=== PATIENT | female | born 1995 | race Caucasian/White ===

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

== ENCOUNTER 2017-01-03 13:38 | Outpatient (CLI) | payer OTHER | END 2017-01-03 13:39 | disposition home or self-care (01) | DX: R59.0 Localized enlarged lymph nodes (principal) ==

== ENCOUNTER 2017-03-17 13:37 | Outpatient (CLI) | payer OTHER ==
[2017-03-17 20:13] LABS: BASOPHILS % (AUTO) 0.5 %; EOSINOPHILS # (AUTO) 0.6 10^3/uL (0.0-0.7); HCT - HEMATOCRIT 45.2 % (37.0-47.0); HGB - HEMOGLOBIN 15.1 g/dL (12.0-16.0); LYMPHOCYTES # (AUTO) 1.8 10^3/uL (1.5-3.5); LYMPHOCYTES % (AUTO) 25.8 %; MEAN CORPUSCULAR HEMOGLOBIN 29.8 pg (27.0-31.0); MEAN CORPUSCULAR HGB CONC 33.5 g/dL (32.0-36.0); MEAN CORPUSCULAR VOLUME 89.1 fL (81.0-99.0); MEAN PLATELET VOLUME 9.5 fL (7.9-10.8); MONOCYTES # (AUTO) 0.6 10^3/uL (0.0-1.0); MONOCYTES % (AUTO) 8.2 %; NEUTROPHILS # (AUTO) 3.9 10^3/uL (1.5-6.6); NEUTROPHILS % (AUTO) 56.5 %; NUCLEATED RED BLOOD CELLS AUTO 0.1 /100WBC; RED BLOOD COUNT 5.07 10^6/uL (4.20-5.40); RED CELL DISTRIBUTION WIDTH 13.4 % (12.0-15.0); UNCORRECTED WHITE BLOOD COUNT 6.9 x10^3/uL; WHITE BLOOD COUNT 6.9 x10^3/uL (4.8-10.8)
[2017-03-17 20:18] LABS: ALBUMIN/GLOBULIN RATIO 1.6 (1.0-2.2); BILIRUBIN,TOTAL 0.7 mg/dL (0.2-1.0); CALCIUM 9.5 mg/dL (8.5-10.3); CREATININE 0.7 mg/dL (0.4-1.0); POTASSIUM 4.1 mmol/L (3.5-5.0); TOTAL PROTEIN 7.6 g/dL (6.7-8.2)
== END 2017-03-17 13:38 | disposition home or self-care (01) ==
LOC: LAB.WCP 13:37
PROVIDERS: ATTEND Family Medicine
DX: R10.9 Unspecified abdominal pain (principal); R19.7 Diarrhea, unspecified
CPT/HCPCS: 36415; 80053; 82150; 83690; 85025

== ENCOUNTER 2017-03-18 13:39 | Outpatient (CLI) | payer OTHER | END 2017-03-18 13:40 | disposition home or self-care (01) | LOC: LAB.R 13:39 | PROVIDERS: ATTEND Family Medicine | DX: R10.9 Unspecified abdominal pain (principal); R19.7 Diarrhea, unspecified | CPT/HCPCS: 83630; 87045; 87046; 87077; 87177; 87209; 87493 ==

== ENCOUNTER 2017-03-22 15:29 | Outpatient (CLI) | payer OTHER ==
--- NOTE | 2017-03-23 10:39 | Ultrasound Report ---
PELVIC ULTRASOUND NON-OB: 03/22/2017 CLINICAL HISTORY: This is a 21-year-old female in for transabdominal pelvic ultrasound. Only transa bdominal ultrasound was ordered by patient's physician. TECHNIQUE: Transabdominal pelvic ultrasound performed for global evaluation. Real-time scanning perf ormed and static images obtained. FINDINGS: Uterus measures 7.8 x 2.9 x 5 cm for a volume of 59.2 mL. The endometrial echo complex dixon s a normal AP diameter of 5.6 mm. Uterus is normal in size and parenchymal pattern. Left ovary measures 3 x 2.0 x 1.7 cm for a volume of 5.3 mL. Right ovary measures 5.1 x 3.8 x 4.1 cm for a volume of 41.6 mL. Right ovary demonstrates a benign-a ppearing cyst measuring 3.4 x 3.1 x 3.3 cm. This cyst does have some small internal echoes. This pr obably represents a benign cyst, possibly with some hemorrhage. Recommend a repeat ultrasound of the left ovary in 8-12 weeks to further confirm this benign origin. If this cyst has not decreased in s ize or disappeared over this time interval, then suggest if possible a transvaginal ultrasound be inc luded in the examination to better evaluate this lesion. IMPRESSION: 1. NORMAL UTERUS AND LEFT OVARY. 2. A 3.4 X 3.1 X 3.3 CM RIGHT OVARIAN CYST. THIS CYST CONTAINS A SMALL AMOUNT OF DEBRIS WITHIN IT. IT PROBABLY REPRESENTS A BENIGN MINIMALLY HEMORRHAGIC OVARIAN CYST. RECOMMEND A REPEAT PELVIC ULTRA SOUND IN 8-12 WEEKS FOR FURTHER EVALUATION. IF THIS CYST IS UNCHANGED ON THE REPEAT ULTRASOUND, THEN SUGGEST COMPLEMENTING THE EXAM IF POSSIBLE WITH A TRANSVAGINAL ULTRASOUND. JOB #: [id number] EXT JOB #:[id number]
== END 2017-03-22 15:30 | disposition home or self-care (01) ==
LOC: DI 15:29
PROVIDERS: ATTEND Family Medicine
DX: N83.201 Unspecified ovarian cyst, right side (principal)
CPT/HCPCS: 76856

== ENCOUNTER 2017-03-25 09:24 | Outpatient (CLI) | payer OTHER ==
--- NOTE | 2017-03-25 15:24 | Ultrasound Report ---
COMPLETE ABDOMINAL ULTRASOUND: 03/25/2017 CLINICAL INDICATION: Abdominal pain. TECHNIQUE: Real-time scanning was performed with community engagement representative static images obtained. FINDINGS: The liver measures 15.3 cm. Hepatic echotexture is normal. No intrahepatic biliary dilatat ion or focal parenchymal lesion is present. The common bile duct measures 2 mm. The gallbladder is no rmal, as is the visualized pancreas. The right kidney measures 10.2 cm, and the left kidney measures 11.3 cm. Both kidneys appear unremarkable. The spleen measures 10.5 cm, and demonstrates normal echot exture. The abdominal aorta is normal in caliber. The inferior vena cava is unremarkable. No free flu id is present. IMPRESSION: NORMAL ABDOMINAL ULTRASOUND. JOB #: [id number] EXT JOB #:[id number]
== END 2017-03-25 09:25 | disposition home or self-care (01) ==
LOC: DI 09:24
PROVIDERS: ATTEND Family Medicine
DX: R10.9 Unspecified abdominal pain (principal)
CPT/HCPCS: 76700

== ENCOUNTER 2017-06-15 08:44 | Outpatient (CLI) | payer OTHER ==
--- NOTE | 2017-06-15 14:52 | Ultrasound Report ---
PELVIC ULTRASOUND: 06/15/2017 CLINICAL INDICATION: Followup right ovarian cyst. COMPARISON: 03/22/2017. TECHNIQUE: Transabdominal pelvic ultrasound performed for global evaluation. Transvaginal pelvic ultr asound performed for detailed evaluation. Real-time scanning performed and static images obtained. FINDINGS: The uterus is anteverted, measuring 7.8 x 4.8 x 3.5 cm. The endometrial echo complex measu res 13 mm. There is an 1.0 x 0.9 x 0.5 cm hypoechoic nodule in the fundal endometrium, suspicious for a small polyp. No focal myometrial lesion is seen. The right ovary measures 3.5 x 2.4 x 2.0 cm, and contains an 1.4 cm follicle. The previously seen 3.4 cm cyst has resolved. The left ovary measures 6. 0 x 4.7 x 3.8 cm, and contains a 5.0 x 4.9 x 3.6 cm hemorrhagic cyst. A small amount of free fluid is present in the cul-de-sac. IMPRESSION: 1. RESOLUTION OF PREVIOUSLY SEEN RIGHT OVARIAN CYST. A 5 CM LEFT OVARIAN HEMORRHAGIC CYST. 2. A 10 MMK HYPOECHOIC NODULE IN THE FUNDAL ENDOMETRIUM, SUSPICIOUS FOR A SMALL POLYP. :9 JOB #: [id number] EXT JOB #:[id number]
== END 2017-06-15 08:45 | disposition home or self-care (01) ==
LOC: DI 08:44
PROVIDERS: ATTEND Physician Assistant Medical
DX: N83.202 Unspecified ovarian cyst, left side (principal); R93.8 Abnormal findings on diagnostic imaging of other specified body structures
CPT/HCPCS: 76830; 76856

== ENCOUNTER 2017-08-01 16:13 | Outpatient (CLI) | payer OTHER | END 2017-08-01 16:14 | disposition home or self-care (01) | LOC: DI 16:13 | PROVIDERS: ATTEND Physician Assistant Medical | DX: Z53.9 Procedure and treatment not carried out, unspecified reason (principal) ==

== ENCOUNTER 2017-08-02 12:09 | Outpatient (CLI) | payer OTHER ==
--- NOTE | 2017-08-03 17:23 | XRAY Report ---
SCOLIOSIS SERIES: 08/02/2017 CLINICAL INDICATION: Scoliosis. Frontal and lateral views of the thoracolumbar spine were obtained. There is long segment dextroscoliosis of the thoracic spine, with curvature measuring 12 degrees between the pedicles of T4 and T12. Minimal compensatory levoscoliosis of the lumbar spine is present, measuring 4 degrees between the pedicles of L1 and L4. There is no evidence of compression fracture. The physes are fused. IMPRESSION: MILD DEXTROSCOLIOSIS OF THE THORACIC SPINE, WITH MINIMAL COMPENSATORY LEVOSCOLIOSIS OF THE LUMBAR SPINE. MTDD
== END 2017-08-02 12:10 | disposition home or self-care (01) ==
LOC: DI 12:09
PROVIDERS: ATTEND Physician Assistant Medical
DX: M41.84 Other forms of scoliosis, thoracic region (principal); M41.86 Other forms of scoliosis, lumbar region
CPT/HCPCS: 72082

== ENCOUNTER 2017-10-18 17:36 | Outpatient (CLI) | payer OTHER ==
[2017-10-18] MEDS ORDERED: IOPAMIDOL-300 50 ML VIAL ONE (18:10)
[2017-10-18] MEDS ORDERED: IOPAMIDOL-300 100 ML VIAL ONE (18:10)
[2017-10-18 18:17] LABS: BASOPHILS % (AUTO) 0.6 %; EOSINOPHILS # (AUTO) 0.1 10^3/uL (0.0-0.7); EOSINOPHILS % (AUTO) 1.2 %; LYMPHOCYTES # (AUTO) 2.6 10^3/uL (1.5-3.5); LYMPHOCYTES % (AUTO) 37.4 %; MEAN CORPUSCULAR HEMOGLOBIN 28.4 pg (27.0-31.0); MEAN CORPUSCULAR HGB CONC 33.4 g/dL (32.0-36.0); MEAN CORPUSCULAR VOLUME 84.9 fL (81.0-99.0); MEAN PLATELET VOLUME 8.6 fL (7.9-10.8); MONOCYTES # (AUTO) 0.7 10^3/uL (0.0-1.0); MONOCYTES % (AUTO) 9.8 %; NEUTROPHILS # (AUTO) 3.6 10^3/uL (1.5-6.6); PLT - PLATELET COUNT 232 10^3/uL (130-450); RED BLOOD COUNT 4.95 10^6/uL (4.20-5.40); RED CELL DISTRIBUTION WIDTH 13.4 % (12.0-15.0)
[2017-10-18 18:47] LABS: ALBUMIN 4.2 g/dL (3.2-5.5); ALBUMIN/GLOBULIN RATIO 1.4 (1.0-2.2); BILIRUBIN,TOTAL 0.2 mg/dL (0.2-1.0); CALCIUM 8.9 mg/dL (8.5-10.3); CREATININE 0.8 mg/dL (0.4-1.0); TOTAL PROTEIN 7.2 g/dL (6.7-8.2)
[2017-10-18] MEDS ORDERED: IOPAMIDOL-300 50 ML VIAL PO ONE (19:30)
[2017-10-18] MEDS ORDERED: IOPAMIDOL-300 100 ML VIAL IVP ONE (19:30)
--- NOTE | 2017-10-18 19:50 | CT Preliminary Report ---
Exam: CT ABDOMEN/PELVIS W/ IMPRESSION: Normal abdomen and pelvis CT. [facility] SITE ID: [id number]
--- NOTE | 2017-10-18 19:55 | CT Report ---
EXAM: CT ABDOMEN AND PELVIS EXAM DATE: 10/18/2017 07:26 PM. CLINICAL HISTORY: Right lower quadrant pain, nausea and vomiting for 2 weeks. History of ovarian cyst s. COMPARISONS: No prior CT exam. Pelvic ultrasound 06/15/2017. TECHNIQUE: Routine helical CT imaging was performed through the abdomen and pelvis. IV contrast: 100 mL ISOVUE 300. Enteric contrast: 50 mL Isovue diluted in 1 liter water. Reconstructions: Coronal and sagittal. In accordance with CT protocol optimization, one or more of the following dose reduction techniques w ere utilized for this exam: automated exposure control, adjustment of mA and/or KV based on patient s ize, or use of iterative reconstructive technique. FINDINGS: Lung Bases: Unremarkable. Liver: Normal. No masses. Gallbladder/Bile Ducts: Unremarkable. Spleen: Normal. Pancreas: Normal. Adrenal Glands: Normal. Kidneys: Normal. No masses or hydronephrosis. Peritoneal Cavity/Bowel: Normal. No free fluid, free air or adenopathy. No masses or acute inflammato ry process. The appendix is well visualized and normal. Oral contrast extends through to the mid ileu m. Pelvic Organs: Normal. Trace of free cul-de-sac fluid. The bladder and visualized pelvic organs are within normal limits. Vasculature: No aneurysms or other significant abnormality. Bones: No significant abnormality. Other: None. IMPRESSION: Normal abdomen and pelvis CT. [facility] Referring Provider Line: [phone] SITE ID: [id number]
== END 2017-10-18 17:37 | disposition home or self-care (01) ==
LOC: DI 17:36
PROVIDERS: ATTEND Physician Assistant Medical
DX: R10.31 Right lower quadrant pain (principal)
CPT/HCPCS: 36415; 74177; 80053; 83690; 85025; Q9967

== ENCOUNTER 2017-11-11 14:46 | Outpatient (CLI) | payer OTHER ==
--- NOTE | 2017-11-12 08:33 | Ultrasound Report ---
EXAM: PELVIC ULTRASOUND EXAM DATE: 11/11/2017 03:55 PM. CLINICAL HISTORY: ABDOMINAL Pain, right LOWER QUADRANT. COMPARISON: None. TECHNIQUE: Realtime transabdominal pelvic scan performed to identify the uterus and adnexa and as an overview of other pelvic structures, followed by transvaginal scan to provide greater detail of the u terus and adnexa, with static image documentation. FINDINGS: Uterus: 8.1 x 4.7 x 3.1 cm, volume 62 cc. Anteverted position. Normal overall size and echotexture. Masses: None. Endometrium: 9 mm. Normal. Cervix: Unremarkable. Right Ovary: 3.1 x 1.8 x 1.8 cm, volume 5 cc. Normal echotexture and blood flow. Left Ovary: 3.8 x 3.1 x 2.8 cm, volume 17 cc. Normal echotexture and blood flow. Free Fluid: None. The appendix is not imaged. IMPRESSION: Negative pelvic ultrasound. [facility] Referring Provider Line: [phone] SITE ID: [id number]
== END 2017-11-11 14:47 | disposition home or self-care (01) ==
LOC: DI 14:46
PROVIDERS: ATTEND Physician Assistant Medical
DX: R10.31 Right lower quadrant pain (principal)
CPT/HCPCS: 76830; 76856

== ENCOUNTER 2017-11-12 12:51 | Outpatient (CLI) | payer OTHER ==
--- NOTE | 2017-11-13 04:58 | CT Report ---
EXAM: CT HEAD EXAM DATE: 11/12/2017 01:56 PM. CLINICAL HISTORY: Right-sided headaches, blurred vision, migraine COMPARISON: None. TECHNIQUE: Multiaxial CT images were obtained from the foramen magnum to the vertex. Reformats: Coron al. IV contrast: None. In accordance with CT protocol optimization, one or more of the following dose reduction techniques w ere utilized for this exam: automated exposure control, adjustment of mA and/or KV based on patient s ize, or use of iterative reconstructive technique. FINDINGS: Parenchyma: No intraparenchymal hemorrhage. No evidence of mass, midline shift, or CT findings of inf arction. [place]-white differentiation is distinct. Extraaxial Spaces: Normal for age. No subdural or epidural collections identified. Ventricles: Normal in size and position. Sinuses and Orbits: Imaged paranasal sinuses, orbits, and mastoids show no significant abnormality. Bones: No evidence of fracture or calvarial defect. Other: None. IMPRESSION: Normal head CT. [facility] Referring Provider Line: [phone] SITE ID: [id number]
== END 2017-11-12 12:52 | disposition home or self-care (01) ==
LOC: DI 12:51
PROVIDERS: ATTEND Physician Assistant Medical
DX: G43.909 Migraine, unspecified, not intractable, without status migrainosus (principal)
CPT/HCPCS: 70450

== ENCOUNTER 2018-01-09 08:00 | Outpatient (CLI) | payer OTHER ==
[2018-01-09 18:57] LABS: BASOPHILS % (AUTO) 0.3 %; EOSINOPHILS # (AUTO) 0.1 10^3/uL (0.0-0.7); EOSINOPHILS % (AUTO) 1.8 %; HGB - HEMOGLOBIN 13.7 g/dL (12.0-16.0); LYMPHOCYTES # (AUTO) 2.2 10^3/uL (1.5-3.5); LYMPHOCYTES % (AUTO) 36.3 %; MEAN CORPUSCULAR HEMOGLOBIN 28.4 pg (27.0-31.0); MEAN CORPUSCULAR HGB CONC 32.8 g/dL (32.0-36.0); MEAN CORPUSCULAR VOLUME 86.5 fL (81.0-99.0); MEAN PLATELET VOLUME 9.4 fL (7.9-10.8); MONOCYTES # (AUTO) 0.5 10^3/uL (0.0-1.0); MONOCYTES % (AUTO) 7.4 %; NEUTROPHILS # (AUTO) 3.3 10^3/uL (1.5-6.6); NEUTROPHILS % (AUTO) 54.2 %; PLT - PLATELET COUNT 238 10^3/uL (130-450); RED BLOOD COUNT 4.83 10^6/uL (4.20-5.40); RED CELL DISTRIBUTION WIDTH 13.5 % (12.0-15.0); WHITE BLOOD COUNT 6.2 x10^3/uL (4.8-10.8)
[2018-01-09 19:12] LABS: ALBUMIN 4.1 g/dL (3.2-5.5); ALBUMIN/GLOBULIN RATIO 1.5 (1.0-2.2); BILIRUBIN,TOTAL 0.8 mg/dL (0.2-1.0); CALCIUM 8.9 mg/dL (8.5-10.3); CREATININE 0.7 mg/dL (0.4-1.0); TOTAL PROTEIN 6.9 g/dL (6.7-8.2)
== END 2018-01-09 08:01 | disposition home or self-care (01) ==
LOC: LAB.WCP 08:00
PROVIDERS: ATTEND Family Medicine
DX: K92.1 Melena (principal); R10.9 Unspecified abdominal pain
CPT/HCPCS: 36415; 80053; 85025

== ENCOUNTER 2020-12-05 04:02 | Outpatient (CLI) | payer OTHER | END 2020-12-05 23:59 | disposition home or self-care (01) | LOC: LAB.R 04:02 | PROVIDERS: ATTEND Family Medicine | DX: J02.9 Acute pharyngitis, unspecified (principal); Z20.822 Contact with and (suspected) exposure to COVID-19 ==

== ENCOUNTER 2021-01-30 08:00 | Outpatient (CLI) | payer OTHER | END 2021-01-30 23:59 | disposition home or self-care (01) | LOC: LAB.N 08:00 | PROVIDERS: ATTEND Family Medicine | DX: R39.9 Unspecified symptoms and signs involving the genitourinary system (principal) | CPT/HCPCS: 87086 ==

== ENCOUNTER 2021-03-12 13:46 | Outpatient (CLI) | payer OTHER ==
[2021-03-12 13:57] LABS: BASOPHILS % (AUTO) 0.5 %; EOSINOPHILS # (AUTO) 0.1 10^3/uL (0.0-0.7); EOSINOPHILS % (AUTO) 1.6 %; HCT - HEMATOCRIT 43.2 % (37.0-47.0); HGB - HEMOGLOBIN 14.4 g/dL (12.0-16.0); LYMPHOCYTES # (AUTO) 2.1 10^3/uL (1.5-3.5); LYMPHOCYTES % (AUTO) 25.1 %; MEAN CORPUSCULAR HEMOGLOBIN 28.7 pg (27.0-31.0); MEAN CORPUSCULAR HGB CONC 33.3 g/dL (32.0-36.0); MEAN CORPUSCULAR VOLUME 86.2 fL (81.0-99.0); MEAN PLATELET VOLUME 9.7 fL (7.9-10.8); MONOCYTES # (AUTO) 0.7 10^3/uL (0.0-1.0); NEUTROPHILS # (AUTO) 5.3 10^3/uL (1.5-6.6); NEUTROPHILS % (AUTO) 64.4 %; PLT - PLATELET COUNT 310 10^3/uL (130-450); RED BLOOD COUNT 5.01 10^6/uL (4.20-5.40); RED CELL DISTRIBUTION WIDTH 12.8 % (12.0-15.0); WHITE BLOOD COUNT 8.2 x10^3/uL (4.8-10.8)
[2021-03-12] MEDS ORDERED: IOVERSOL 320 100 ML VIAL IVP ONE ×2 (14:07→17:06)
[2021-03-12 14:20] LABS: ALBUMIN 4.3 g/dL (3.2-5.5); ALBUMIN/GLOBULIN RATIO 1.3 (1.0-2.2); BILIRUBIN,TOTAL 0.8 mg/dL (0.2-1.0); CALCIUM 9.3 mg/dL (8.5-10.3); CREATININE 0.8 mg/dL (0.4-1.0); HCG,QUALITATIVE BLOOD NEGATIVE; POTASSIUM 3.9 mmol/L (3.5-5.0); TOTAL PROTEIN 7.7 g/dL (6.7-8.2)
[2021-03-12] MEDS ORDERED: IOVERSOL 320 50 ML VIAL ONE (14:33)
--- NOTE | 2021-03-12 16:19 | CT Report ---
PROCEDURE: Abdomen/Pelvis W INDICATIONS: LEFT LOWER QUAD ABD PAIN CONTRAST: IV CONTRAST: Optiray 320 ml: 100 PO CONTRAST: Optiray 320 ml50 TECHNIQUE: After the administration of intravenous contrast, 5 mm thick sections acquired from the diaphragms to the symphysis. 5 mm thick coronal and sagittal reformats were acquired. For radiation dose reducti on, the following was used: automated exposure control, adjustment of mA and/or kV according to candelaria ent size. COMPARISON: 10/18/2007 FINDINGS: Image quality: Excellent. ABDOMEN: Lung bases: Lung bases are clear. Heart size is normal. Solid organs: Liver and spleen are normal in size and enhancement. Gallbladder is normal Biliary s ystem is non dilated. Pancreas enhances normally. No adrenal nodules. Kidneys demonstrate normal s ize and enhancement, without hydronephrosis. Peritoneum and bowel: There is mild diffuse colonic wall thickening with some mucosal edema resulting in a "thumb printing" appearance of the haustral folds. Mild associated pericolonic fat stranding, p articularly in the distal sigmoid region. Small bowel is unremarkable. Nodes and vessels: No retroperitoneal or mesenteric adenopathy by size criteria. Aorta and inferior vena cava are normal in size. Miscellaneous: No ventral hernias. PELVIS: Genitourinary: Bladder wall thickness is normal. Miscellaneous: No inguinal hernias or adenopathy. Bones: No suspicious bony lesions. No vertebral body compression fractures. IMPRESSION: Diffuse mild colitis. Findings are favored to be infectious or inflammatory. Reviewed by: Tigre García MD on 03/12/2021 4:18 PM PDT Approved by: Tigre García MD on 03/12/2021 4:18 PM PDT Station ID: [id number]
[2021-03-12] MEDS ORDERED: IOVERSOL 320 50 ML VIAL PO ONE (17:07)
== END 2021-03-12 13:47 | disposition home or self-care (01) ==
LOC: LAB 13:46
PROVIDERS: ATTEND Family Medicine
DX: R10.32 Left lower quadrant pain (principal); K52.9 Noninfective gastroenteritis and colitis, unspecified
CPT/HCPCS: 36415; 74177; 80053; 83690; 84703; 85025; Q9967

== ENCOUNTER 2021-03-13 08:00 | Outpatient (CLI) | payer OTHER | END 2021-03-13 23:59 | disposition home or self-care (01) | LOC: LAB.R 08:00 | PROVIDERS: ATTEND Family Medicine | DX: R19.7 Diarrhea, unspecified (principal) | CPT/HCPCS: 83993; 87493 ==

== ENCOUNTER 2022-01-31 08:00 | Outpatient (CLI) | payer OTHER ==
[2022-01-31 21:09] LABS: BACTERIAL VAGINOSIS DNA NEGATIVE (NEGATIVE); CANDIDA GLABRATA DNA NEGATIVE (NEGATIVE); CANDIDA GROUP DNA NEGATIVE (NEGATIVE); CANDIDA KRUSEI DNA NEGATIVE (NEGATIVE); TRICHOMONAS VAGINALIS DNA NEGATIVE (NEGATIVE)
[2022-01-31 21:36] LABS: CHLAMYDIA TRACHOMATIS DNA NEGATIVE (NEGATIVE); NEISSERIA GONORRHOEAE DNA NEGATIVE (NEGATIVE)
== END 2022-01-31 23:59 | disposition home or self-care (01) ==
LOC: LAB 08:00
PROVIDERS: ATTEND Nurse Practitioner
DX: N89.8 Other specified noninflammatory disorders of vagina (principal)
CPT/HCPCS: 81514; 87491; 87591; 87661

== ENCOUNTER 2022-06-05 07:53 | Outpatient (CLI) | payer OTHER ==
[2022-06-05 08:53] LABS: HCG,QUALITATIVE BLOOD NEGATIVE
== END 2022-06-05 07:54 | disposition home or self-care (01) ==
LOC: LAB 07:53
PROVIDERS: ATTEND Psychiatry & Neurology Psychiatry
DX: F31.81 Bipolar II disorder (principal); Z79.899 Other long term (current) drug therapy
CPT/HCPCS: 36415; 80175; 84703

== ENCOUNTER 2022-06-09 12:01 | Outpatient (CLI) | payer OTHER ==
[2022-06-09 12:36] LABS: ALBUMIN 4.3 g/dL (3.2-5.5); ALBUMIN/GLOBULIN RATIO 1.2 (1.0-2.2); BILIRUBIN,TOTAL 0.5 mg/dL (0.2-1.0); CALCIUM 9.3 mg/dL (8.5-10.3); CREATININE 0.7 mg/dL (0.4-1.0); POTASSIUM 3.9 mmol/L (3.5-5.0); TOTAL PROTEIN 7.8 g/dL (6.7-8.2)
== END 2022-06-09 12:02 | disposition home or self-care (01) ==
LOC: LAB 12:01
PROVIDERS: ATTEND Psychiatry & Neurology Psychiatry
DX: F31.81 Bipolar II disorder (principal); Z79.899 Other long term (current) drug therapy
CPT/HCPCS: 36415; 80053

== ENCOUNTER 2022-10-21 09:15 | Outpatient (CLI) | payer OTHER ==
[2022-10-22 01:36] LABS: BACTERIAL VAGINOSIS DNA NEGATIVE (NEGATIVE); CANDIDA GROUP DNA NEGATIVE (NEGATIVE); CANDIDA KRUSEI DNA NEGATIVE (NEGATIVE); TRICHOMONAS VAGINALIS DNA NEGATIVE (NEGATIVE)
[2022-10-22 01:37] LABS: CANDIDA GLABRATA DNA NEGATIVE (NEGATIVE)
== END 2022-10-21 09:30 | disposition home or self-care (01) ==
LOC: LAB.N 09:15
PROVIDERS: ATTEND Registered Nurse
DX: N89.8 Other specified noninflammatory disorders of vagina (principal); R30.0 Dysuria
CPT/HCPCS: 81514; 87086

== ENCOUNTER 2023-02-04 16:00 | Outpatient (CLI) | payer OTHER ==
[2023-02-04 20:59] LABS: BILIRUBIN,URINE NEGATIVE (NEGATIVE); GLUCOSE, URINE (UA) NEGATIVE (NEGATIVE); KETONES,URINE (UA) 15 mg/dL (NEGATIVE); LEUKOCYTE ESTERASE, URINE TRACE (NEGATIVE); NITRITE,URINE NEGATIVE (NEGATIVE); OCCULT BLOOD,URINE MODERATE (NEGATIVE); PROTEIN,URINE TRACE mg/dL (NEGATIVE); UROBILINOGEN,URINE 0.2 (NORMAL) E.U./dL (NORMAL)
[2023-02-04 21:10] LABS: CLARITY,URINE CLOUDY (CLEAR)
[2023-02-04 21:19] LABS: BACTERIA,URINE Moderate /HPF (None Seen); SQUAMOUS EPITHELIAL CELL,UR RARE Squamous (<= Few); WBC,URINE >25 /HPF (0-5)
[2023-02-05 02:06] LABS: BACTERIAL VAGINOSIS DNA NEGATIVE (NEGATIVE); CANDIDA GLABRATA DNA NEGATIVE (NEGATIVE); CANDIDA GROUP DNA NEGATIVE (NEGATIVE); CANDIDA KRUSEI DNA NEGATIVE (NEGATIVE); TRICHOMONAS VAGINALIS DNA NEGATIVE (NEGATIVE)
== END 2023-02-04 16:15 | disposition home or self-care (01) ==
LOC: LAB.N 16:00
PROVIDERS: ATTEND Emergency Medicine
DX: R30.0 Dysuria (principal)
CPT/HCPCS: 81001; 81514; 87086

== ENCOUNTER 2023-04-20 07:47 | Outpatient (CLI) | payer OTHER | END 2023-04-20 07:48 | disposition home or self-care (01) | LOC: LAB 07:47 | PROVIDERS: ATTEND Physician Assistant Medical | DX: N91.2 Amenorrhea, unspecified (principal) | CPT/HCPCS: 36415; 84702; 84703 ==

== ENCOUNTER 2023-04-30 15:13 | Emergency (ER) | payer OTHER ==
[2023-04-30] MEDS ORDERED: SODIUM CHLORIDE 0.9% 1,000 ML IV STA (17:59)
[2023-04-30] MEDS ORDERED: LACTATED RINGERS 1,000 ML IV STA (18:00)
[2023-04-30] MEDS ORDERED: METOCLOPRAMIDE 10 MG/2 ML VIAL IVP STA (18:00)
--- NOTE | 2023-04-30 18:01 | ED Physician Documentation ---
PD HPI ABD PAIN - Stated complaint Stated Complaint: DEHYDRATION,VOMIT - Chief complaint Chief Complaint: Abd Pain - History obtained from History obtained from: Patient, Family - Additional information Additional information: Inez at 6 weeks gestation presents with nausea and vomiting for the last 4 days. Is actually associate with some diarrhea and feeling tingly all over. She tried Zofran which was helpful but she is about to run out and feels dehydrated with lightheadedness and some leg cramping. No pelvic cramping, pelvic pain, bleeding, or fluid loss.. Illness PD PAST MEDICAL HISTORY - Past Medical History Cardiovascular: None Respiratory: None Endocrine/Autoimmune: None GI: None : None HEENT: None Psych: Depression, Anxiety Musculoskeletal: None Derm: None - Past Surgical History Past Surgical History: No - Present Medications Home Medications: Ambulatory Orders Medication Instructions Recorded Confirmed Propranolol [Inderal] 10 mg PO ONCE 12/20/15 12/20/15 lamoTRIgine [LaMICtal] 75 mg PO DAILY 12/20/15 12/20/15 Ondansetron Odt [Zofran] 4 mg TL Q6H PRN #20 tablet 04/30/23 - Allergies Allergies/Adverse Reactions: Allergies Allergy/AdvReac Type Severity Reaction Status Date / Time No Known Drug Allergies Allergy Verified 04/30/23 15:17 - Social History Does the pt smoke?: No Smoking Status: Never smoker Does the pt drink ETOH?: Yes Does the pt have substance abuse?: Yes - Immunizations Immunizations are current?: Yes PD ED PE NORMAL - Vitals Vital signs reviewed: Yes - General General: Alert and oriented X 3, No acute distress - Abdomen Abdomen: Normal bowel sounds, Soft, Non tender - Female Female : Other (There is a suggestion of IUP on bedside transabdominal ultrasound, but discussed with her that at this early date I am unable to give her any details other than that. No free fluid.) - Neuro Neuro: Alert and oriented X 3, Normal speech Results - Vitals Vitals: Vital Signs - 24 hr 04/30/23 04/30/23 15:17 17:51 Temperature 37.3 C Heart Rate 100 98 Respiratory 16 16 Rate Blood Pressure 132/80 H 130/80 O2 Saturation 98 98 Oxygen O2 Source Room air - Labs Labs: Laboratory Tests 04/30/23 18:55 Sodium 135 Potassium 3.5 Chloride 103 Carbon Dioxide 24 Anion Gap 8.0 BUN 8 Creatinine 0.7 Estimated GFR (MDRD) 102 Glucose 86 Calcium 8.9 Magnesium 1.8 PD Medical Decision Making - ED course ED course: 27-year-old with hyperemesis gravidarum. Administer Reglan and did get very anxious afterwards which resolved with Benadryl. Received 2 L of IV crystalloid. BMP normal. Departure - Departure Disposition: Home, Self Care Clinical Impression: Hyperemesis gravidarum Condition: Good Record reviewed to determine appropriate education?: Yes Instructions: ED Preg Morning Sickness Prescriptions: Ondansetron Odt [Zofran] 4 mg TL Q6H PRN #20 tablet PRN Reason: Nausea / Vomiting Comments: Follow-up with Mary Raymond on Tuesday as scheduled. And establish care with [facility]. Return for new or worsening symptoms. Forms: PCP List
[2023-04-30] MEDS ORDERED: diphenhydrAMINE INJ 50 MG/ML VIAL IVP STA (18:43)
[2023-04-30 19:11] LABS: CALCIUM 8.9 mg/dL (8.5-10.3); CREATININE 0.7 mg/dL (0.6-1.3); MAGNESIUM 1.8 mg/dL (1.7-2.3); POTASSIUM 3.5 mmol/L (3.5-4.5)
[2023-04-30 20:07] VITALS: BP 116/65; O2SAT 10
== END 2023-04-30 20:04 | disposition home or self-care (01) ==
LOC: ED 15:13
DX: O21.0 Mild hyperemesis gravidarum (principal); Z3A.01 Less than 8 weeks gestation of pregnancy
CPT/HCPCS: 36415; 80048; 83735; 96374; 96375; 99283; J1200; J2765; J7120